=== PATIENT | male | born 1955 | race Caucasian/White ===

== ENCOUNTER 2021-09-24 14:34 | Emergency (ER) | payer OTHER ==
[~2021-09-24] VITALS: Ht 175.3 cm; Wt 82.0 kg
[2021-09-24 16:55] LABS: EOSINOPHILS % 2.5 % (0.0-5.0); HEMATOCRIT. 43.3 % (42.0-52.0); HEMOGLOBIN. 14.7 g/dL (14.0-18.0); LYMPHOCYTES % 30.7 % (20.0-50.0); MEAN CORPUSCULAR HEMOGLOBIN 30.6 pg (28.0-32.0); MEAN CORPUSCULAR VOLUME 90.1 fL (80.0-94.0); MEAN PLATELET VOLUME 7.1 fl (7.4-10.4); NEUTROPHILS % 52.8 % (40.0-76.0); PLATELET 255 x1000/uL (130-400); RED CELL DISTRIBUTION WIDTH 13.6 % (11.6-14.6)
[2021-09-24 17:00] LABS: CHLORIDE 109 mEq/L (98-107)
[2021-09-24 19:30] VITALS: BP 126/78
[2021-09-24 19:42] LABS: CLARITY URINE CLEAR (CLEAR); COLOR URINE YELLOW (YELLOW); KETONES URINE NEGATIVE (NEGATIVE); LEUKOCYTE ESTERASE URINE NEGATIVE (NEGATIVE); NITRITE URINE NEGATIVE (NEGATIVE); OCCULT BLOOD URINE NEGATIVE (NEGATIVE); PH URINE 6.5 (4.5-8.0); PROTEIN URINE NEGATIVE (NEGATIVE); SPECIFIC GRAVITY URINE 1.016 (1.005-1.030); UROBILINOGEN URINE 0.2 E.U./dL (0.2-1.0)
== END 2021-09-24 20:00 | disposition left against medical advice (07) ==
LOC: ER 14:34 → EDBEDREQTM 19:52 → EDBEDREQ 19:52 → ER 20:00 → CANBEDREQ 22:22
DX: R55 Syncope and collapse (principal); S50.312A Abrasion of left elbow, initial encounter; R42 Dizziness and giddiness; M54.2 Cervicalgia; W07.XXXA Fall from chair, initial encounter; Y93.89 Activity, other specified; Y92.89 Other specified places as the place of occurrence of the external cause; Y99.0 Civilian activity done for income or pay; M47.812 Spondylosis without myelopathy or radiculopathy, cervical region
CPT/HCPCS: 36415; 71045; 80053; 81003; 83605; 83880; 84443; 84484; 85025; 93005; 99285